=== PATIENT | male | born 1940 | race Caucasian/White ===

== ENCOUNTER → 2016-08-28 | Outpatient (CLI) | payer MEDICARE ==
[~2016-08-28] MED LIST: CHOL20003 PO; ENOX40SY4 SQ; ERGO500017 PO; FERR325T20 PO; HYDR-3138 PO; IBUP200T48 PO; NICO1PAT4 TD; POLY17PO5 PO; REGADENOSON 0.4 MG/5 ML SYRINGE ONE; TRAM50TA2 PO
== END | disposition home or self-care (01) ==
LOC: CFH 12:45
PROVIDERS: ATTEND Internal Medicine Cardiovascular Disease
DX: I25.89 Other forms of chronic ischemic heart disease (principal); R06.02 Shortness of breath
CPT/HCPCS: 78452; 93017; 93306; A9502; J2785

== ENCOUNTER 2016-10-08 08:03 | Day surgery (SDC) | payer MEDICARE ==
[2016-10-07 15:08] VITALS: BP 135/84
[2016-10-07 15:19] LABS: BLOOD UREA NITROGEN 20 mg/dL (7-18)
[~2016-10-08] VITALS: Ht 182.9 cm; Wt 63.6 kg
[~2016-10-08 08:03] MED LIST changes: +ASPI-496 PO; +CARV12.543 PO; -REGADENOSON 0.4 MG/5 ML SYRINGE ONE
[2016-10-08] MEDS ORDERED: SODIUM CHLORIDE 0.9% 1,000 ML IV SCH (08:17)
[2016-10-08] MEDS ORDERED: BISACODYL 5 MG EC TABLET PO PRN (08:30)
[2016-10-08] MEDS ORDERED: ONDANSETRON 2MG/ML, 2ML IVPush PRN (08:30)
[2016-10-08] MEDS ORDERED: ZOLPIDEM 5MG TABLET PO PRN (08:30)
[2016-10-08] MEDS ORDERED: BISACODYL 10 MG SUPP PR PRN (08:30)
[2016-10-08] MEDS ORDERED: ACETAMINOPHEN 325 MG TABLET PO PRN (08:30)
[2016-10-08] MEDS ORDERED: IBUP-1222 PO (08:42)
[2016-10-08] MEDS ORDERED: FENTANYL PF 100 MCG/2ML ONE (10:15)
[2016-10-08] MEDS ORDERED: NITROGLYCERIN 5 MG/ML, 10ML ONE (10:15)
[2016-10-08] MEDS ORDERED: VERAPAMIL 2.5 MG/ML, 2ML ONE (10:15)
[2016-10-08] MEDS ORDERED: MIDAZOLAM 1 MG/ML, 5ML ONE (10:15)
[2016-10-08] MEDS ORDERED: LIDOCAINE 2%, 20ML ONE (10:16)
[2016-10-08] MEDS ORDERED: HEPARIN 1,000 UNITS/ML, 10ML ONE (10:16)
[2016-10-08] MEDS ORDERED: SACU1TAB PO (12:50)
[2016-10-08] MEDS ORDERED: SODIUM CHLORIDE 0.9% 250 ML IV SCH (13:00)
== END 2016-10-08 14:15 | disposition home or self-care (01) ==
LOC: CACL 08:03
PROVIDERS: ATTEND Internal Medicine Cardiovascular Disease
DX: I25.10 Atherosclerotic heart disease of native coronary artery without angina pectoris (principal); I42.9 Cardiomyopathy, unspecified; F10.10 Alcohol abuse, uncomplicated; F17.210 Nicotine dependence, cigarettes, uncomplicated; Z91.011 Allergy to milk products; Z79.01 Long term (current) use of anticoagulants
CPT/HCPCS: 36415; 71020; 80048; 85025; 85610; 85730; 93005; 93454; 99152; C1894; J1644; J2250; J3010; J3490; Q9967

== ENCOUNTER 2016-11-01 18:07 | Emergency (ER) | payer MEDICARE ==
[~2016-11-01] VITALS: Ht 182.9 cm; Wt 64.0 kg
[~2016-11-01 18:07] MED LIST changes: +IBUP-1222 PO; +SACU1TAB PO
[2016-11-01] MEDS ORDERED: SODIUM CHLORIDE 0.9% 1,000 ML IV ONE (18:15)
[2016-11-01] MEDS ORDERED: ONDANSETRON 2MG/ML, 2ML IVPush ONE (18:30)
[2016-11-01] MEDS ORDERED: DIPH,PERTUSS(ACELL),TET VAC/PF 0.5 ML IM-VACC ONE ×2 (18:30→18:59)
[2016-11-01] MEDS ORDERED: ASPI-496 PO (18:37)
[2016-11-01] MEDS ORDERED: ONDANSETRON 2MG/ML, 2ML ONE (18:58)
[2016-11-01 19:03] LABS: BLOOD UREA NITROGEN 26 mg/dL (7-18)
[2016-11-01 19:11] LABS: ASPARTATE AMINO TRANSFERASE 15 U/L (15-37)
[2016-11-01 19:16] LABS: IS PT STATUS REG ER OR PRE ER? YES
[2016-11-01] MEDS ORDERED: LIDOCAINE 1%, 20ML SQ ONE (19:30)
[2016-11-01] MEDS ORDERED: BACITRACIN ZINC OINT 500U/GM, 0.9 GM ONE (20:07)
[2016-11-01 20:39] VITALS: BP 131/76
== END 2016-11-01 20:42 | disposition home or self-care (01) ==
LOC: ED 20:36
DX: R55 Syncope and collapse (principal); S01.01XA Laceration without foreign body of scalp, initial encounter; W01.0XXA Fall on same level from slipping, tripping and stumbling without subsequent striking against object, initial encounter; Y93.89 Activity, other specified; Y92.89 Other specified places as the place of occurrence of the external cause; Y99.9 Unspecified external cause status
CPT/HCPCS: 12002; 36415; 70450; 71010; 72125; 80053; 84484; 85025; 85610; 90471; 90715; 93005; 96361; 96374; 99285; J2405; J7030

== ENCOUNTER 2017-08-31 12:39 | Inpatient (IN) | payer MEDICARE ==
[~2017-08-31] VITALS: Ht 182.9 cm; Wt 59.8 kg
[~2017-08-31 12:39] MED LIST changes: +CHOL2000 PO; -CHOL20003 PO; +FERR325T18 PO; -FERR325T20 PO; -HYDR-3138 PO; +HYDR-3237 PO; -IBUP200T48 PO; +IBUP200T49 PO; +NICO-486 TD; -NICO1PAT4 TD
[2017-08-31 14:41] LABS: BASOPHILS # (AUTO) 0.01 x10^3/uL (0-0.1); BASOPHILS % (AUTO) 0 % (0-1); EOSINOPHILS # (AUTO) 0.01 x10^3/uL (0-0.4); EOSINOPHILS % (AUTO) 0 % (1-7); LYMPHOCYTES # (AUTO) 0.97 x10^3/uL (1-3.4); LYMPHOCYTES % (AUTO) 22 % (22-44); MD NO; MEAN CORPUSCULAR HEMOGLOBIN 29.3 pg (27.5-34.5); MEAN CORPUSCULAR HGB CONC 31.7 g/dL (33.2-36.2); MEAN CORPUSCULAR VOLUME 92.4 fL (81-97); MEAN PLATELET VOLUME 8.3 fL (7.4-10.4); MONOCYTES # (AUTO) 0.34 x10^3/uL (0.2-0.8); MONOCYTES % (AUTO) 8 % (2-9); NEUTROPHILS # (AUTO) 3.06 x10^3/uL (1.8-6.8); NEUTROPHILS % (AUTO) 70 % (42-75); PLATELET COUNT 251 x10^3/uL (130-400); RED BLOOD COUNT 2.89 x10^6/uL (4.38-5.82); RED CELL DISTRIBUTION WIDTH 16.1 % (9.4-14.8)
[2017-08-31 14:54] LABS: ALBUMIN 2.4 g/dL (3.4-5.0); CALCIUM 8.5 mg/dL (8.5-10.1)
[2017-08-31 14:59] LABS: ALANINE AMINOTRANSFERASE 22 U/L (12-78); ALKALINE PHOSPHATASE 131 U/L (45-117); ANION GAP 5 mmol/L (5-15); BILIRUBIN,TOTAL 0.2 mg/dL (0.2-1.0); CHLORIDE 106 mmol/L (98-107); TOTAL PROTEIN 8.8 g/dL (6.4-8.2)
[2017-08-31 15:01] LABS: INTERNATIONAL NORMALIZED RATIO 0.98 (0.93-1.1); PROTHROMBIN TIME 10.1 Seconds (9.6-11.5)
[2017-08-31 15:53] LABS: CULTURE INDICATED? YES; MICROSCOPIC INDICATED
[2017-08-31] MEDS ORDERED: iron PO (15:55)
[2017-08-31] MEDS ORDERED: ACETAMINOPHEN 325 MG TABLET PO PRN (16:00)
[2017-08-31] MEDS ORDERED: ONDANSETRON 2MG/ML, 2ML IVPush PRN (16:00)
[2017-08-31] MEDS ORDERED: VANCOMYCIN PER PHARMACY MC PRN (16:00)
[2017-08-31] MEDS ORDERED: hydrALAzine 20 MG/ML, 1ML IVPush PRN (16:00)
[2017-08-31] MEDS ORDERED: PHARMACOKINETIC MONITORING MC PRN (17:00)
[2017-08-31 17:29] VITALS: BP 115/75
[2017-08-31] MEDS ORDERED: VANCOMYCIN PMX 1GM/200ML 200 ML IV ONE (17:30)
[2017-08-31] MEDS: BEER 12 OZ CAN PO SCH (17:37)
[2017-08-31] MEDS: AMPICILLIN/SULBACTAM 1,500 MG in SODIUM CHLORIDE 0.9% 50 ML IV SCH (17:54)
[2017-08-31] MEDS: SODIUM CHLORIDE 0.9% 1,000 ML IV SCH (17:54)
[2017-08-31 19:57] VITALS: BP 99/64
[2017-08-31] MEDS ORDERED: HEPARIN 5,000 UNITS/ML, 1ML SQ SCH (21:00)
[2017-08-31] MEDS ORDERED: CARVEDILOL 6.25 MG TABLET ONE ×2 (23:18→23:21)
[2017-08-31] MEDS: CARVEDILOL 12.5 MG TABLET PO SCH (23:26)
[2017-08-31] MEDS: ASPIRIN 81 MG TABLET EC PO SCH (23:27)
[2017-09-01] VITALS (15 sets, daily range): BP systolic 92–102; BP diastolic 50–74
[2017-09-01] MEDS: AMPICILLIN/SULBACTAM 1,500 MG in SODIUM CHLORIDE 0.9% 50 ML IV SCH ×3 (02:22→18:26)
[2017-09-01 06:15] LABS: MEAN CORPUSCULAR HEMOGLOBIN 30.2 pg (27.5-34.5); MEAN CORPUSCULAR HGB CONC 32.7 g/dL (33.2-36.2); MEAN CORPUSCULAR VOLUME 92.4 fL (81-97); PLATELET COUNT 199 x10^3/uL (130-400); RED BLOOD COUNT 2.13 x10^6/uL (4.38-5.82); RED CELL DISTRIBUTION WIDTH 15.8 % (9.4-14.8)
[2017-09-01 06:23] LABS: % IRON SATURATION 17 % (20-55); ALANINE AMINOTRANSFERASE 16 U/L (12-78); ALBUMIN 1.8 g/dL (3.4-5.0); ANION GAP 5 mmol/L (5-15); CALCIUM 7.7 mg/dL (8.5-10.1); CHLORIDE 111 mmol/L (98-107); CREATININE 1.61 mg/dL (0.7-1.3); IRON LEVEL 30 mcg/dL (65-175); TOTAL IRON BINDING CAPACITY 172 mcg/dL (250-450)
[2017-09-01 06:29] LABS: ALKALINE PHOSPHATASE 91 U/L (45-117); BILIRUBIN,TOTAL 0.2 mg/dL (0.2-1.0); PREALBUMIN 11.8 mg/dL (20.0-40.0); TOTAL PROTEIN 6.8 g/dL (6.4-8.2)
[2017-09-01 06:30] LABS: BASOPHILS # (AUTO) 0.01 x10^3/uL (0-0.1); BASOPHILS % (AUTO) 0 % (0-1); EOSINOPHILS # (AUTO) 0.01 x10^3/uL (0-0.4); EOSINOPHILS % (AUTO) 0 % (1-7); LYMPHOCYTES # (AUTO) 0.98 x10^3/uL (1-3.4); LYMPHOCYTES % (AUTO) 33 % (22-44); MD SCAN; MONOCYTES # (AUTO) 0.42 x10^3/uL (0.2-0.8); MONOCYTES % (AUTO) 14 % (2-9); NEUTROPHILS # (AUTO) 1.59 x10^3/uL (1.8-6.8); NEUTROPHILS % (AUTO) 53 % (42-75)
[2017-09-01] MEDS: BEER 12 OZ CAN PO SCH ×2 (08:00→15:56)
[2017-09-01] MEDS: CARVEDILOL 12.5 MG TABLET PO SCH ×2 (09:00→21:19)
[2017-09-01] MEDS ORDERED: CARVEDILOL 6.25 MG TABLET ONE ×2 (09:12→21:16)
[2017-09-01] MEDS: FERROUS SULFATE 325 MG TABLET PO SCH (09:33)
[2017-09-01] MEDS: ASPIRIN 81 MG TABLET EC PO SCH ×2 (09:33→21:19)
[2017-09-01] MEDS: IRON SUCROSE COMPLEX 100MG/5ML IV SCH (09:49)
[2017-09-01] MEDS: SODIUM CHLORIDE 0.9% 1,000 ML IV SCH ×3 (09:52→23:34)
[2017-09-02 00:25] VITALS: BP 87/45
[2017-09-02] MEDS: AMPICILLIN/SULBACTAM 1,500 MG in SODIUM CHLORIDE 0.9% 50 ML IV SCH ×3 (02:34→23:56)
[2017-09-02 06:00] LABS: BASOPHILS # (AUTO) 0.01 x10^3/uL (0-0.1); BASOPHILS % (AUTO) 0 % (0-1); EOSINOPHILS # (AUTO) 0.01 x10^3/uL (0-0.4); EOSINOPHILS % (AUTO) 0 % (1-7); LYMPHOCYTES # (AUTO) 1.02 x10^3/uL (1-3.4); LYMPHOCYTES % (AUTO) 32 % (22-44); MD NO; MEAN CORPUSCULAR HEMOGLOBIN 30.6 pg (27.5-34.5); MEAN CORPUSCULAR HGB CONC 33.4 g/dL (33.2-36.2); MEAN CORPUSCULAR VOLUME 91.8 fL (81-97); MEAN PLATELET VOLUME 8.3 fL (7.4-10.4); MONOCYTES # (AUTO) 0.51 x10^3/uL (0.2-0.8); MONOCYTES % (AUTO) 16 % (2-9); NEUTROPHILS % (AUTO) 51 % (42-75); PLATELET COUNT 198 x10^3/uL (130-400); RED BLOOD COUNT 3.01 x10^6/uL (4.38-5.82); RED CELL DISTRIBUTION WIDTH 15.7 % (9.4-14.8)
[2017-09-02 06:10] LABS: CHLORIDE 112 mmol/L (98-107)
[2017-09-02 06:22] LABS: ALANINE AMINOTRANSFERASE 15 U/L (12-78); ALBUMIN 1.8 g/dL (3.4-5.0); ALKALINE PHOSPHATASE 96 U/L (45-117); ANION GAP 7 mmol/L (5-15); BILIRUBIN,TOTAL 0.6 mg/dL (0.2-1.0); CALCIUM 7.8 mg/dL (8.5-10.1); CREATININE 1.82 mg/dL (0.7-1.3); VANCOMYCIN,RANDOM 6.8 mcg/mL
[2017-09-02 07:25] VITALS: BP 107/61
[2017-09-02] MEDS ORDERED: VANCOMYCIN PMX 1GM/200ML 200 ML IV ONE (08:30)
[2017-09-02] MEDS ORDERED: CARVEDILOL 6.25 MG TABLET ONE (08:54)
[2017-09-02] MEDS: ASPIRIN 81 MG TABLET EC PO SCH ×2 (09:01→23:55)
[2017-09-02] MEDS: IRON SUCROSE COMPLEX 100MG/5ML IV SCH (09:01)
[2017-09-02] MEDS: FERROUS SULFATE 325 MG TABLET PO SCH (09:02)
[2017-09-02] MEDS: CARVEDILOL 12.5 MG TABLET PO SCH ×2 (09:02→23:55)
[2017-09-02] MEDS: BEER 12 OZ CAN PO SCH ×2 (09:09→18:36)
[2017-09-02] MEDS: SODIUM CHLORIDE 0.9% 1,000 ML IV SCH ×2 (11:30→23:56)
[2017-09-02 13:15] VITALS: BP 109/58
[2017-09-02 19:53] VITALS: BP 106/61
[2017-09-03 01:35] VITALS: BP 117/67
[2017-09-03 05:39] LABS: BASOPHILS # (AUTO) 0.01 x10^3/uL (0-0.1); BASOPHILS % (AUTO) 0 % (0-1); EOSINOPHILS # (AUTO) 0.01 x10^3/uL (0-0.4); EOSINOPHILS % (AUTO) 0 % (1-7); LYMPHOCYTES # (AUTO) 1.04 x10^3/uL (1-3.4); LYMPHOCYTES % (AUTO) 34 % (22-44); MD NO; MEAN CORPUSCULAR HGB CONC 32.8 g/dL (33.2-36.2); MEAN CORPUSCULAR VOLUME 91.6 fL (81-97); MEAN PLATELET VOLUME 7.9 fL (7.4-10.4); MONOCYTES % (AUTO) 16 % (2-9); NEUTROPHILS # (AUTO) 1.53 x10^3/uL (1.8-6.8); NEUTROPHILS % (AUTO) 50 % (42-75); PLATELET COUNT 178 x10^3/uL (130-400); RED BLOOD COUNT 2.84 x10^6/uL (4.38-5.82); RED CELL DISTRIBUTION WIDTH 16.8 % (9.4-14.8)
[2017-09-03 05:50] LABS: ALBUMIN 1.7 g/dL (3.4-5.0); ANION GAP 6 mmol/L (5-15); CHLORIDE 113 mmol/L (98-107); CREATININE 1.51 mg/dL (0.7-1.3)
[2017-09-03] MEDS ORDERED: DOXY100C15 PO (07:52)
[2017-09-03] MEDS: BEER 12 OZ CAN PO SCH (08:00)
[2017-09-03] MEDS: ASPIRIN 81 MG TABLET EC PO SCH (08:29)
[2017-09-03] MEDS: CARVEDILOL 12.5 MG TABLET PO SCH (08:29)
[2017-09-03] MEDS: IRON SUCROSE COMPLEX 100MG/5ML IV SCH (08:29)
[2017-09-03 08:30] VITALS: BP 134/66
[2017-09-03] MEDS ORDERED: MORPHINE SULFATE 4 MG/ML, 1ML IVPush PRN (08:30)
[2017-09-03] MEDS: AMPICILLIN/SULBACTAM 1,500 MG in SODIUM CHLORIDE 0.9% 50 ML IV SCH (10:02)
[2017-09-03] MEDS: SODIUM CHLORIDE 0.9% 1,000 ML IV SCH (10:03)
== END 2017-09-03 13:30 | disposition home or self-care (01) | DRG 725 ==
LOC: ED 15:19 → EDIP 15:20 → SUATTDRO 15:40 → ED 16:02 → 4NOR 16:40
PROVIDERS: ADMIT Hospitalist; ATTEND Hospitalist
PROC: 0T9B70Z Drainage of Bladder with Drainage Device, Via Natural or Artificial Opening (ICD-10-PCS; principal; 2017-08-31)
PROC: 30233N1 Transfusion of Nonautologous Red Blood Cells into Peripheral Vein, Percutaneous Approach (ICD-10-PCS; 2017-09-01)
DX: N40.1 Benign prostatic hyperplasia with lower urinary tract symptoms (principal); E43 Unspecified severe protein-calorie malnutrition; N17.9 Acute kidney failure, unspecified; I96 Gangrene, not elsewhere classified; E87.5 Hyperkalemia; B95.61 Methicillin susceptible Staphylococcus aureus infection as the cause of diseases classified elsewhere; D63.8 Anemia in other chronic diseases classified elsewhere; N13.8 Other obstructive and reflux uropathy; C44.90 Unspecified malignant neoplasm of skin, unspecified; Z68.1 Body mass index [BMI] 19.9 or less, adult; N39.0 Urinary tract infection, site not specified; R31.9 Hematuria, unspecified; D50.9 Iron deficiency anemia, unspecified; F10.10 Alcohol abuse, uncomplicated; F17.210 Nicotine dependence, cigarettes, uncomplicated; I12.9 Hypertensive chronic kidney disease with stage 1 through stage 4 chronic kidney disease, or unspecified chronic kidney disease; M06.9 Rheumatoid arthritis, unspecified; N18.3 Chronic kidney disease, stage 3 (moderate); S31.501A Unspecified open wound of unspecified external genital organs, male, initial encounter; N50.89 Other specified disorders of the male genital organs; Z82.49 Family history of ischemic heart disease and other diseases of the circulatory system; Z96.649 Presence of unspecified artificial hip joint
CPT/HCPCS: 36415; 74176; 80048; 80053; 80202; 81001; 82040; 83540; 83550; 83735; 84100; 84134; 85025; 85610; 85730; 86850; 86900; 86923; 87070; 87077; 87086; 87186; 87205; 93005; 99285; J1644; J1756; J3370; J0295; J7030; P9016

== ENCOUNTER 2017-09-10 18:29 | Inpatient (IN) | payer MEDICARE ==
[~2017-09-10] VITALS: Ht 182.9 cm; Wt 58.0 kg
[~2017-09-10 18:29] MED LIST changes: +DOXY100C15 PO; +iron PO
[2017-09-10 18:53] LABS: MEAN CORPUSCULAR HEMOGLOBIN 31.1 pg (27.5-34.5); MEAN CORPUSCULAR HGB CONC 32.8 g/dL (33.2-36.2); MEAN CORPUSCULAR VOLUME 94.8 fL (81-97); MEAN PLATELET VOLUME 8.6 fL (7.4-10.4); PLATELET COUNT 168 x10^3/uL (130-400); RED BLOOD COUNT 3.46 x10^6/uL (4.38-5.82); RED CELL DISTRIBUTION WIDTH 17.5 % (9.4-14.8)
[2017-09-10 19:04] LABS: ALANINE AMINOTRANSFERASE 22 U/L (12-78); ALBUMIN 2.6 g/dL (3.4-5.0); ANION GAP 8 mmol/L (5-15); CALCIUM 8.7 mg/dL (8.5-10.1); CHLORIDE 109 mmol/L (98-107)
[2017-09-10 19:05] LABS: SALICYLATE LEVEL < 1.7 mg/dL (2.8-20.0)
[2017-09-10 19:07] LABS: ALKALINE PHOSPHATASE 97 U/L (45-117); BILIRUBIN,TOTAL 0.5 mg/dL (0.2-1.0); TOTAL PROTEIN 8.5 g/dL (6.4-8.2)
[2017-09-10 19:08] LABS: ACETAMINOPHEN < 2 mcg/mL (10-30)
[2017-09-10 19:13] LABS: MD YES
[2017-09-10 19:16] LABS: BASOS#(MANUAL) 0.02 x10^3/uL (0-0.1); BASOS% (MANUAL) 1 % (0-1); LYMPH#(MANUAL) 1.08 x10^3/uL (1-3.4); LYMPHS% (MANUAL) 47 % (22-44); MONOS#(MANUAL) 0.14 x10^3/uL (0.3-2.7); MONOS% (MANUAL) 6 % (2-9); SEG#(MANUAL) 1.06 x10^3/uL (1.8-6.8); SEGS% (MANUAL) 46 % (42-75)
[2017-09-10 19:17] LABS: ANISOCYTOSIS 1+
[2017-09-10 19:18] LABS: <PLATELET ESTIMATE> ADEQUATE; <PLT MORPHOLOGY> NORMAL PLT MORPH
[2017-09-10 19:37] LABS: AMPHETAMINE SCREEN, URINE Negative (Negative); BARBITURATE SCREEN, URINE Negative (Negative); BENZODIAZEPINE SCREEN, URINE Negative (Negative); CANNABINOID SCREEN, URINE Negative (Negative); COCAINE SCREEN, URINE Negative (Negative); METHADONE SCREEN, URINE Negative (Negative); OPIATE SCREEN, URINE Negative (Negative)
[2017-09-10] MEDS ORDERED: ACETAMINOPHEN 325 MG TABLET PO PRN (20:30)
[2017-09-10] MEDS ORDERED: BISACODYL 10 MG SUPP PR PRN (20:30)
[2017-09-10] MEDS ORDERED: POLYETHYLENE GLYCOL 17 GM PACKET PO PRN (20:30)
[2017-09-10] MEDS ORDERED: ONDANSETRON ODT 4 MG PO PRN (20:30)
[2017-09-10] MEDS: SODIUM CHLORIDE FLUSH 10ML SYR IVF SCH (21:00)
[2017-09-10] MEDS ORDERED: ASPIRIN 81 MG TABLET EC ONE (21:31)
[2017-09-10] MEDS ORDERED: NICOTINE 14MG/24 HR PATCH.TD24 ONE (21:31)
[2017-09-10] MEDS ORDERED: DOXYCYCLINE 100MG TABLET ONE (21:31)
[2017-09-10] MEDS: NICOTINE 14MG/24 HR PATCH.TD24 TD SCH (23:04)
[2017-09-10] MEDS: SACUBITRIL/VALSARTAN 24MG-26MG TAB PO SCH (23:05)
[2017-09-10] MEDS: DOXYCYCLINE 100MG TABLET PO SCH (23:06)
[2017-09-10] MEDS: ASPIRIN 81 MG TABLET EC PO SCH (23:06)
[2017-09-10] MEDS: CARVEDILOL 12.5 MG TABLET PO SCH (23:07)
[2017-09-11 00:48] VITALS: BP 131/85
[2017-09-11 02:11] VITALS: BP 131/85
[2017-09-11 06:30] LABS: MEAN CORPUSCULAR HEMOGLOBIN 31.5 pg (27.5-34.5); MEAN CORPUSCULAR HGB CONC 32.9 g/dL (33.2-36.2); MEAN CORPUSCULAR VOLUME 95.6 fL (81-97); PLATELET COUNT 146 x10^3/uL (130-400); RED BLOOD COUNT 2.89 x10^6/uL (4.38-5.82); RED CELL DISTRIBUTION WIDTH 17.9 % (9.4-14.8)
[2017-09-11 06:38] LABS: ALBUMIN 2.3 g/dL (3.4-5.0); CALCIUM 7.9 mg/dL (8.5-10.1); CHLORIDE 109 mmol/L (98-107)
[2017-09-11 06:44] LABS: ALANINE AMINOTRANSFERASE 21 U/L (12-78); ALKALINE PHOSPHATASE 95 U/L (45-117); ANION GAP 7 mmol/L (5-15); BILIRUBIN,TOTAL 0.5 mg/dL (0.2-1.0); CREATININE 1.57 mg/dL (0.7-1.3); TOTAL PROTEIN 7.6 g/dL (6.4-8.2)
[2017-09-11 06:55] LABS: BASOPHILS # (AUTO) 0.01 x10^3/uL (0-0.1); BASOPHILS % (AUTO) 0 % (0-1); EOSINOPHILS # (AUTO) 0.01 x10^3/uL (0-0.4); EOSINOPHILS % (AUTO) 1 % (1-7); LYMPHOCYTES # (AUTO) 0.83 x10^3/uL (1-3.4); LYMPHOCYTES % (AUTO) 38 % (22-44); MD SCAN; MONOCYTES # (AUTO) 0.35 x10^3/uL (0.2-0.8); MONOCYTES % (AUTO) 16 % (2-9); NEUTROPHILS # (AUTO) 0.98 x10^3/uL (1.8-6.8); NEUTROPHILS % (AUTO) 45 % (42-75)
[2017-09-11 08:30] VITALS: BP 125/80
[2017-09-11] MEDS: SENNA/DOCUSATE TABLET PO SCH ×3 (09:00→19:54)
[2017-09-11] MEDS: SACUBITRIL/VALSARTAN 24MG-26MG TAB PO SCH ×2 (09:00→21:01)
[2017-09-11] MEDS: SODIUM CHLORIDE FLUSH 10ML SYR IVF SCH ×3 (09:00→21:00)
[2017-09-11] MEDS: DOXYCYCLINE 100MG TABLET PO SCH ×2 (09:04→21:01)
[2017-09-11] MEDS: ASPIRIN 81 MG TABLET EC PO SCH ×2 (09:04→21:01)
[2017-09-11] MEDS: CARVEDILOL 12.5 MG TABLET PO SCH ×2 (09:45→21:01)
[2017-09-11] MEDS ORDERED: ACETAMINOPHEN 325 MG TABLET PO PRN (11:00)
[2017-09-11] MEDS: FERROUS SULFATE 325 MG TABLET PO SCH (11:09)
[2017-09-11] MEDS: FOLIC ACID 1 MG TABLET PO SCH (11:09)
[2017-09-11] MEDS: THIAMINE 100MG TABLET PO SCH (11:09)
[2017-09-11] MEDS: MULTIVITAMIN 1 TABLET PO SCH (11:09)
[2017-09-11 11:11] LABS: MICROSCOPIC INDICATED
[2017-09-11 11:12] LABS: CULTURE INDICATED? YES
[2017-09-11 14:30] VITALS: BP 115/72
[2017-09-11 19:59] VITALS: BP 102/62
[2017-09-11 20:58] VITALS: BP 110/66
[2017-09-11] MEDS: NICOTINE 14MG/24 HR PATCH.TD24 TD SCH (23:06)
[2017-09-12 02:22] VITALS: BP 112/69
[2017-09-12 05:50] LABS: MEAN CORPUSCULAR HEMOGLOBIN 31.8 pg (27.5-34.5); MEAN CORPUSCULAR HGB CONC 33.1 g/dL (33.2-36.2); MEAN PLATELET VOLUME 8.7 fL (7.4-10.4); PLATELET COUNT 144 x10^3/uL (130-400); RED BLOOD COUNT 2.92 x10^6/uL (4.38-5.82); RED CELL DISTRIBUTION WIDTH 18.5 % (9.4-14.8)
[2017-09-12 05:56] LABS: ANION GAP 8 mmol/L (5-15); CALCIUM 7.7 mg/dL (8.5-10.1); CHLORIDE 107 mmol/L (98-107)
[2017-09-12 05:59] LABS: CREATININE 1.62 mg/dL (0.7-1.3)
[2017-09-12 06:53] LABS: BASOPHILS # (AUTO) 0.01 x10^3/uL (0-0.1); BASOPHILS % (AUTO) 0 % (0-1); EOSINOPHILS # (AUTO) 0.01 x10^3/uL (0-0.4); EOSINOPHILS % (AUTO) 1 % (1-7); LYMPHOCYTES # (AUTO) 0.99 x10^3/uL (1-3.4); LYMPHOCYTES % (AUTO) 46 % (22-44); MD SCAN; MONOCYTES # (AUTO) 0.39 x10^3/uL (0.2-0.8); MONOCYTES % (AUTO) 18 % (2-9); NEUTROPHILS # (AUTO) 0.78 x10^3/uL (1.8-6.8); NEUTROPHILS % (AUTO) 36 % (42-75)
[2017-09-12 07:04] VITALS: BP 154/87
[2017-09-12] MEDS: SODIUM CHLORIDE FLUSH 10ML SYR IVF SCH ×2 (09:00→19:07)
[2017-09-12] MEDS ORDERED: CARVEDILOL 12.5 MG TABLET PO SCH (09:00)
[2017-09-12] MEDS: MULTIVITAMIN 1 TABLET PO SCH (09:05)
[2017-09-12] MEDS: THIAMINE 100MG TABLET PO SCH (09:05)
[2017-09-12] MEDS: FOLIC ACID 1 MG TABLET PO SCH (09:05)
[2017-09-12 12:23] VITALS: BP 99/57
[2017-09-12] MEDS: FERROUS SULFATE 325 MG TABLET PO SCH (12:36)
[2017-09-12 19:05] VITALS: BP 115/75
[2017-09-12] MEDS: CARVEDILOL 6.25 MG TABLET PO SCH (20:40)
[2017-09-13 02:34] VITALS: BP 108/69
[2017-09-13] MEDS: NICOTINE 14MG/24 HR PATCH.TD24 TD SCH (02:40)
[2017-09-13 06:36] VITALS: BP 141/83
[2017-09-13 07:03] LABS: MEAN CORPUSCULAR HEMOGLOBIN 30.4 pg (27.5-34.5); MEAN CORPUSCULAR HGB CONC 32.3 g/dL (33.2-36.2); MEAN CORPUSCULAR VOLUME 94.4 fL (81-97); PLATELET COUNT 144 x10^3/uL (130-400); RED BLOOD COUNT 2.84 x10^6/uL (4.38-5.82); RED CELL DISTRIBUTION WIDTH 18.2 % (9.4-14.8)
[2017-09-13 07:13] LABS: ALBUMIN 2.3 g/dL (3.4-5.0); ANION GAP 5 mmol/L (5-15); CALCIUM 7.9 mg/dL (8.5-10.1); CHLORIDE 112 mmol/L (98-107); CREATININE 1.55 mg/dL (0.7-1.3)
[2017-09-13 07:31] LABS: BASOPHILS # (AUTO) 0.01 x10^3/uL (0-0.1); BASOPHILS % (AUTO) 0 % (0-1); EOSINOPHILS # (AUTO) 0.02 x10^3/uL (0-0.4); EOSINOPHILS % (AUTO) 1 % (1-7); LYMPHOCYTES # (AUTO) 1.03 x10^3/uL (1-3.4); LYMPHOCYTES % (AUTO) 47 % (22-44); MD SCAN; MONOCYTES # (AUTO) 0.41 x10^3/uL (0.2-0.8); MONOCYTES % (AUTO) 19 % (2-9); NEUTROPHILS # (AUTO) 0.73 x10^3/uL (1.8-6.8); NEUTROPHILS % (AUTO) 33 % (42-75)
[2017-09-13 07:33] LABS: ABSOLUTE RETICS # 0.05 x10^6/uL (0.5-1.5); RED BLOOD COUNT 2.78 x10^6/uL (4.38-5.82); RETICULOCYTE COUNT % 1.79 % (0.5-1.5)
[2017-09-13] MEDS: SODIUM CHLORIDE FLUSH 10ML SYR IVF SCH ×2 (07:42→19:13)
[2017-09-13] MEDS: CARVEDILOL 6.25 MG TABLET PO SCH ×2 (07:46→19:43)
[2017-09-13] MEDS: FOLIC ACID 1 MG TABLET PO SCH (07:46)
[2017-09-13] MEDS: MULTIVITAMIN 1 TABLET PO SCH (07:46)
[2017-09-13] MEDS: THIAMINE 100MG TABLET PO SCH (07:47)
[2017-09-13] MEDS: SENNA/DOCUSATE TABLET PO SCH (07:47)
[2017-09-13 12:06] VITALS: BP 126/73
[2017-09-13] MEDS: FERROUS SULFATE 325 MG TABLET PO SCH (12:16)
[2017-09-13 19:20] VITALS: BP 114/69
[2017-09-13] MEDS: SULFAMETH./TRIMETHOPRIM SS 400MG/80MG TABLET PO SCH (19:42)
[2017-09-14 04:32] VITALS: BP 117/70
[2017-09-14 06:08] LABS: MEAN CORPUSCULAR HEMOGLOBIN 30.5 pg (27.5-34.5); MEAN CORPUSCULAR HGB CONC 32.3 g/dL (33.2-36.2); MEAN CORPUSCULAR VOLUME 94.5 fL (81-97); MEAN PLATELET VOLUME 8.1 fL (7.4-10.4); PLATELET COUNT 151 x10^3/uL (130-400); RED BLOOD COUNT 2.87 x10^6/uL (4.38-5.82); RED CELL DISTRIBUTION WIDTH 18.7 % (9.4-14.8)
[2017-09-14 06:35] VITALS: BP 124/72
[2017-09-14 06:36] LABS: MD YES
[2017-09-14 06:39] LABS: EOS#(MANUAL) 0.02 x10^3/uL (0.0-0.4); EOS% (MANUAL) 1 % (1-7); LYMPH#(MANUAL) 1.13 x10^3/uL (1-3.4); LYMPHS% (MANUAL) 54 % (22-44); MONOS#(MANUAL) 0.25 x10^3/uL (0.3-2.7); MONOS% (MANUAL) 12 % (2-9); SEG#(MANUAL) 0.69 x10^3/uL (1.8-6.8); SEGS% (MANUAL) 33 % (42-75)
[2017-09-14 06:40] LABS: <PLATELET ESTIMATE> ADEQUATE; <PLT MORPHOLOGY> NORMAL PLT MORPH; ANISOCYTOSIS 1+
[2017-09-14 06:56] LABS: ANION GAP 7 mmol/L (5-15); CALCIUM 7.9 mg/dL (8.5-10.1); CHLORIDE 112 mmol/L (98-107); CREATININE 1.69 mg/dL (0.7-1.3)
[2017-09-14] MEDS: SODIUM CHLORIDE FLUSH 10ML SYR IVF SCH ×2 (07:44→18:59)
[2017-09-14] MEDS: CARVEDILOL 6.25 MG TABLET PO SCH ×2 (07:45→19:58)
[2017-09-14] MEDS: SENNA/DOCUSATE TABLET PO SCH (07:46)
[2017-09-14] MEDS: MULTIVITAMIN 1 TABLET PO SCH (07:46)
[2017-09-14] MEDS: FOLIC ACID 1 MG TABLET PO SCH (07:46)
[2017-09-14] MEDS: SULFAMETH./TRIMETHOPRIM SS 400MG/80MG TABLET PO SCH ×2 (07:47→19:57)
[2017-09-14] MEDS: THIAMINE 100MG TABLET PO SCH (07:47)
[2017-09-14] MEDS: NICOTINE 14MG/24 HR PATCH.TD24 TD SCH (07:49)
[2017-09-14] MEDS: FERROUS SULFATE 325 MG TABLET PO SCH (12:57)
[2017-09-14 13:41] VITALS: BP 121/68
[2017-09-14 18:58] VITALS: BP 122/73
[2017-09-15 01:37] VITALS: BP 131/79
[2017-09-15 05:01] LABS: MEAN CORPUSCULAR HGB CONC 32.6 g/dL (33.2-36.2); MEAN CORPUSCULAR VOLUME 94.8 fL (81-97); MEAN PLATELET VOLUME 8.4 fL (7.4-10.4); PLATELET COUNT 150 x10^3/uL (130-400); RED BLOOD COUNT 2.78 x10^6/uL (4.38-5.82); RED CELL DISTRIBUTION WIDTH 18.2 % (9.4-14.8)
[2017-09-15 05:14] LABS: ALBUMIN 2.3 g/dL (3.4-5.0); ANION GAP 8 mmol/L (5-15); CALCIUM 7.9 mg/dL (8.5-10.1); CHLORIDE 110 mmol/L (98-107)
[2017-09-15 05:29] LABS: BASOPHILS # (AUTO) 0.02 x10^3/uL (0-0.1); BASOPHILS % (AUTO) 1 % (0-1); EOSINOPHILS # (AUTO) 0.02 x10^3/uL (0-0.4); EOSINOPHILS % (AUTO) 1 % (1-7); LYMPHOCYTES # (AUTO) 1.21 x10^3/uL (1-3.4); LYMPHOCYTES % (AUTO) 50 % (22-44); MD SCAN; MONOCYTES # (AUTO) 0.46 x10^3/uL (0.2-0.8); MONOCYTES % (AUTO) 19 % (2-9); NEUTROPHILS # (AUTO) 0.74 x10^3/uL (1.8-6.8); NEUTROPHILS % (AUTO) 30 % (42-75)
[2017-09-15 05:43] LABS: % IRON SATURATION 23 % (20-55); CREATININE 1.75 mg/dL (0.7-1.3); FOLATE LEVEL 14.2 ng/mL (3.1-17.5); IRON LEVEL 53 mcg/dL (65-175); TOTAL IRON BINDING CAPACITY 229 mcg/dL (250-450); TRANSFERRIN 184 mg/dL (200-360)
[2017-09-15 06:30] VITALS: BP 130/75
[2017-09-15] MEDS ORDERED: SODIUM CHLORIDE 0.9% 1,000ML IVBOLUS ONE (06:30)
[2017-09-15] MEDS: FOLIC ACID 1 MG TABLET PO SCH (09:52)
[2017-09-15] MEDS: SENNA/DOCUSATE TABLET PO SCH (09:53)
[2017-09-15] MEDS: NICOTINE 14MG/24 HR PATCH.TD24 TD SCH (09:53)
[2017-09-15] MEDS: CARVEDILOL 6.25 MG TABLET PO SCH ×2 (09:53→20:38)
[2017-09-15] MEDS: THIAMINE 100MG TABLET PO SCH (09:53)
[2017-09-15] MEDS: AMOXICILLIN/CLAV 875-125MG TABLET PO SCH ×2 (09:53→20:38)
[2017-09-15] MEDS: SACUBITRIL/VALSARTAN 24MG-26MG TAB PO SCH (09:53)
[2017-09-15] MEDS: MULTIVITAMIN 1 TABLET PO SCH (09:55)
[2017-09-15] MEDS: FERROUS SULFATE 325 MG TABLET PO SCH ×2 (11:11→17:23)
[2017-09-15 12:01] VITALS: BP 99/61
[2017-09-15] MEDS: SODIUM CHLORIDE FLUSH 10ML SYR IVF SCH ×2 (17:23→20:38)
[2017-09-15] MEDS: LACTATED RINGERS 1,000 ML IV SCH (17:24)
[2017-09-15 19:40] VITALS: BP 126/77
[2017-09-16 01:57] VITALS: BP 127/73
[2017-09-16] MEDS: LACTATED RINGERS 1,000 ML IV SCH ×2 (04:38→18:27)
[2017-09-16 06:15] LABS: MEAN CORPUSCULAR HEMOGLOBIN 31.1 pg (27.5-34.5); MEAN CORPUSCULAR VOLUME 94.5 fL (81-97); MEAN PLATELET VOLUME 8.9 fL (7.4-10.4); PLATELET COUNT 159 x10^3/uL (130-400); RED BLOOD COUNT 2.79 x10^6/uL (4.38-5.82); RED CELL DISTRIBUTION WIDTH 18.6 % (9.4-14.8)
[2017-09-16 06:30] VITALS: BP 138/81
[2017-09-16 06:31] LABS: ALBUMIN 2.3 g/dL (3.4-5.0); ANION GAP 8 mmol/L (5-15); CALCIUM 8.5 mg/dL (8.5-10.1); CHLORIDE 112 mmol/L (98-107); CREATININE 1.71 mg/dL (0.7-1.3)
[2017-09-16 06:34] LABS: FREE T4 (FREE THYROXINE) 0.94 ng/dL (0.76-1.46)
[2017-09-16 06:43] LABS: BASOPHILS # (AUTO) 0.01 x10^3/uL (0-0.1); BASOPHILS % (AUTO) 0 % (0-1); EOSINOPHILS # (AUTO) 0.01 x10^3/uL (0-0.4); EOSINOPHILS % (AUTO) 1 % (1-7); LYMPHOCYTES # (AUTO) 1.13 x10^3/uL (1-3.4); LYMPHOCYTES % (AUTO) 53 % (22-44); MD SCAN; MONOCYTES # (AUTO) 0.35 x10^3/uL (0.2-0.8); MONOCYTES % (AUTO) 17 % (2-9); NEUTROPHILS # (AUTO) 0.62 x10^3/uL (1.8-6.8); NEUTROPHILS % (AUTO) 29 % (42-75)
[2017-09-16] MEDS: FERROUS SULFATE 325 MG TABLET PO SCH ×3 (08:24→17:08)
[2017-09-16] MEDS: SODIUM CHLORIDE FLUSH 10ML SYR IVF SCH ×2 (08:24→20:13)
[2017-09-16] MEDS: NICOTINE 14MG/24 HR PATCH.TD24 TD SCH (08:25)
[2017-09-16] MEDS: FOLIC ACID 1 MG TABLET PO SCH (08:25)
[2017-09-16] MEDS: AMOXICILLIN/CLAV 875-125MG TABLET PO SCH ×2 (08:26→20:14)
[2017-09-16] MEDS: SACUBITRIL/VALSARTAN 24MG-26MG TAB PO SCH (08:26)
[2017-09-16] MEDS: SENNA/DOCUSATE TABLET PO SCH (08:26)
[2017-09-16] MEDS: CARVEDILOL 6.25 MG TABLET PO SCH ×2 (08:27→20:15)
[2017-09-16] MEDS: MULTIVITAMIN 1 TABLET PO SCH (08:27)
[2017-09-16] MEDS: THIAMINE 100MG TABLET PO SCH (08:27)
[2017-09-16 12:40] VITALS: BP 123/75
[2017-09-16 19:34] VITALS: BP 115/70
[2017-09-16 20:17] VITALS: BP 127/73
[2017-09-17 02:45] VITALS: BP 116/63
[2017-09-17 04:59] LABS: MEAN CORPUSCULAR HEMOGLOBIN 31.4 pg (27.5-34.5); MEAN CORPUSCULAR HGB CONC 33.1 g/dL (33.2-36.2); MEAN PLATELET VOLUME 8.6 fL (7.4-10.4); PLATELET COUNT 168 x10^3/uL (130-400); RED BLOOD COUNT 2.84 x10^6/uL (4.38-5.82); RED CELL DISTRIBUTION WIDTH 18.6 % (9.4-14.8)
[2017-09-17 05:06] LABS: CHLORIDE 111 mmol/L (98-107)
[2017-09-17 05:12] LABS: ALBUMIN 2.4 g/dL (3.4-5.0); ANION GAP 8 mmol/L (5-15); C-REACTIVE PROTEIN, QUANT 0.58 mg/dL (0.02-0.49); CALCIUM 8.4 mg/dL (8.5-10.1); CREATININE 1.43 mg/dL (0.7-1.3)
[2017-09-17 06:11] LABS: MD YES
[2017-09-17 06:14] LABS: ANISOCYTOSIS 1+; EOS#(MANUAL) 0.02 x10^3/uL (0.0-0.4); EOS% (MANUAL) 1 % (1-7); LYMPH#(MANUAL) 1.27 x10^3/uL (1-3.4); LYMPHS% (MANUAL) 67 % (22-44); MONOS% (MANUAL) 16 % (2-9); SEGS% (MANUAL) 16 % (42-75)
[2017-09-17 06:15] LABS: <PLATELET ESTIMATE> ADEQUATE; <PLT MORPHOLOGY> NORMAL PLT MORPH
[2017-09-17 06:47] LABS: SEDIMENTATION RATE > 120 mm/hr (0-10)
[2017-09-17 06:50] VITALS: BP 135/75
[2017-09-17] MEDS: CARVEDILOL 6.25 MG TABLET PO SCH ×2 (07:46→22:25)
[2017-09-17] MEDS ORDERED: LIDOCAINE-MPF 1%, 5ML ONE ×2 (08:33)
[2017-09-17] MEDS ORDERED: FENTANYL PF 100 MCG/2ML ONE ×2 (08:39)
[2017-09-17] MEDS ORDERED: FLUMAZENIL 0.1 MG/1 ML, 5ML ONE (08:39)
[2017-09-17] MEDS ORDERED: NALOXONE 1 MG/ML, 2ML ONE (08:39)
[2017-09-17] MEDS ORDERED: MIDAZOLAM 1 MG/ML, 5ML ONE (08:39)
[2017-09-17] MEDS: LACTATED RINGERS 1,000 ML IV SCH ×2 (10:16→22:26)
[2017-09-17] MEDS: AMOXICILLIN/CLAV 875-125MG TABLET PO SCH ×2 (10:17→22:26)
[2017-09-17] MEDS: THIAMINE 100MG TABLET PO SCH (10:17)
[2017-09-17] MEDS: FOLIC ACID 1 MG TABLET PO SCH (10:17)
[2017-09-17] MEDS: MULTIVITAMIN 1 TABLET PO SCH (10:17)
[2017-09-17] MEDS: FERROUS SULFATE 325 MG TABLET PO SCH ×3 (10:17→18:03)
[2017-09-17] MEDS: NICOTINE 14MG/24 HR PATCH.TD24 TD SCH (10:17)
[2017-09-17] MEDS: SENNA/DOCUSATE TABLET PO SCH (10:17)
[2017-09-17] MEDS: SACUBITRIL/VALSARTAN 24MG-26MG TAB PO SCH (10:17)
[2017-09-17] MEDS: SODIUM CHLORIDE FLUSH 10ML SYR IVF SCH ×2 (10:18→22:26)
[2017-09-17 13:45] VITALS: BP 124/72
[2017-09-17 18:43] VITALS: BP 116/69
[2017-09-18 00:20] VITALS: BP 132/79
[2017-09-18 06:29] LABS: MEAN CORPUSCULAR HEMOGLOBIN 31.2 pg (27.5-34.5); MEAN CORPUSCULAR HGB CONC 32.8 g/dL (33.2-36.2); MEAN CORPUSCULAR VOLUME 95.1 fL (81-97); MEAN PLATELET VOLUME 7.9 fL (7.4-10.4); PLATELET COUNT 171 x10^3/uL (130-400); RED BLOOD COUNT 2.84 x10^6/uL (4.38-5.82); RED CELL DISTRIBUTION WIDTH 18.7 % (9.4-14.8)
[2017-09-18 06:38] LABS: ANION GAP 7 mmol/L (5-15); CALCIUM 8.9 mg/dL (8.5-10.1); CHLORIDE 110 mmol/L (98-107); CREATININE 1.38 mg/dL (0.7-1.3)
[2017-09-18 06:45] VITALS: BP 158/99
[2017-09-18 07:37] LABS: MD YES; SEG#(MANUAL) 0.55 x10^3/uL (1.8-6.8); SEGS% (MANUAL) 25 % (42-75)
[2017-09-18 07:38] LABS: <PLATELET ESTIMATE> ADEQUATE; <PLT MORPHOLOGY> NORMAL PLT MORPH; ANISOCYTOSIS 1+; BASOS#(MANUAL) 0.02 x10^3/uL (0-0.1); BASOS% (MANUAL) 1 % (0-1); EOS#(MANUAL) 0.02 x10^3/uL (0.0-0.4); EOS% (MANUAL) 1 % (1-7); LYMPH#(MANUAL) 1.32 x10^3/uL (1-3.4); LYMPHS% (MANUAL) 60 % (22-44); MONOS#(MANUAL) 0.29 x10^3/uL (0.3-2.7); MONOS% (MANUAL) 13 % (2-9)
[2017-09-18] MEDS: AMOXICILLIN/CLAV 875-125MG TABLET PO SCH ×2 (09:00→20:44)
[2017-09-18] MEDS: SENNA/DOCUSATE TABLET PO SCH (09:00)
[2017-09-18] MEDS: MULTIVITAMIN 1 TABLET PO SCH (09:02)
[2017-09-18] MEDS: SACUBITRIL/VALSARTAN 24MG-26MG TAB PO SCH (09:02)
[2017-09-18] MEDS: FOLIC ACID 1 MG TABLET PO SCH (09:02)
[2017-09-18] MEDS: THIAMINE 100MG TABLET PO SCH (09:02)
[2017-09-18] MEDS: FERROUS SULFATE 325 MG TABLET PO SCH ×3 (09:02→17:45)
[2017-09-18] MEDS: NICOTINE 14MG/24 HR PATCH.TD24 TD SCH (09:03)
[2017-09-18] MEDS: SODIUM CHLORIDE FLUSH 10ML SYR IVF SCH ×2 (09:03→20:44)
[2017-09-18] MEDS: CARVEDILOL 6.25 MG TABLET PO SCH ×2 (09:12→20:45)
[2017-09-18] MEDS: LACTATED RINGERS 1,000 ML IV SCH (12:10)
[2017-09-18 14:15] VITALS: BP 107/70
[2017-09-18 19:03] VITALS: BP 110/66
[2017-09-19 01:07] VITALS: BP 114/68
[2017-09-19] MEDS: LACTATED RINGERS 1,000 ML IV SCH ×2 (01:35→14:58)
[2017-09-19 07:05] LABS: MEAN CORPUSCULAR HEMOGLOBIN 30.7 pg (27.5-34.5); MEAN CORPUSCULAR HGB CONC 32.5 g/dL (33.2-36.2); MEAN CORPUSCULAR VOLUME 94.7 fL (81-97); MEAN PLATELET VOLUME 8.2 fL (7.4-10.4); PLATELET COUNT 170 x10^3/uL (130-400); RED BLOOD COUNT 2.92 x10^6/uL (4.38-5.82)
[2017-09-19 08:05] LABS: BASOPHILS # (AUTO) 0.01 x10^3/uL (0-0.1); BASOPHILS % (AUTO) 1 % (0-1); EOSINOPHILS # (AUTO) 0.01 x10^3/uL (0-0.4); EOSINOPHILS % (AUTO) 1 % (1-7); LYMPHOCYTES # (AUTO) 1.19 x10^3/uL (1-3.4); LYMPHOCYTES % (AUTO) 61 % (22-44); MD SCAN; MONOCYTES % (AUTO) 16 % (2-9); NEUTROPHILS # (AUTO) 0.44 x10^3/uL (1.8-6.8); NEUTROPHILS % (AUTO) 23 % (42-75)
[2017-09-19 08:34] VITALS: BP 125/70
[2017-09-19] MEDS: AMOXICILLIN/CLAV 875-125MG TABLET PO SCH ×2 (09:00→21:10)
[2017-09-19] MEDS: SODIUM CHLORIDE FLUSH 10ML SYR IVF SCH ×2 (09:00→21:10)
[2017-09-19] MEDS: FOLIC ACID 1 MG TABLET PO SCH (09:00)
[2017-09-19] MEDS: SENNA/DOCUSATE TABLET PO SCH (09:00)
[2017-09-19] MEDS: MULTIVITAMIN 1 TABLET PO SCH (09:00)
[2017-09-19] MEDS: CARVEDILOL 6.25 MG TABLET PO SCH ×2 (09:00→21:10)
[2017-09-19] MEDS: SACUBITRIL/VALSARTAN 24MG-26MG TAB PO SCH (09:00)
[2017-09-19] MEDS: THIAMINE 100MG TABLET PO SCH (09:00)
[2017-09-19] MEDS: FERROUS SULFATE 325 MG TABLET PO SCH ×3 (09:00→17:43)
[2017-09-19] MEDS: NICOTINE 14MG/24 HR PATCH.TD24 TD SCH (09:01)
[2017-09-19 14:47] VITALS: BP 125/71
[2017-09-19 19:01] VITALS: BP 115/71
[2017-09-20 01:25] VITALS: BP 126/76
[2017-09-20] MEDS: LACTATED RINGERS 1,000 ML IV SCH ×2 (03:53→17:10)
[2017-09-20 04:37] LABS: MEAN CORPUSCULAR HEMOGLOBIN 31.4 pg (27.5-34.5); MEAN CORPUSCULAR HGB CONC 32.9 g/dL (33.2-36.2); MEAN CORPUSCULAR VOLUME 95.5 fL (81-97); MEAN PLATELET VOLUME 8.2 fL (7.4-10.4); PLATELET COUNT 168 x10^3/uL (130-400); RED BLOOD COUNT 2.89 x10^6/uL (4.38-5.82); RED CELL DISTRIBUTION WIDTH 19.4 % (9.4-14.8)
[2017-09-20 04:48] LABS: ANION GAP 6 mmol/L (5-15); CALCIUM 8.4 mg/dL (8.5-10.1); CHLORIDE 109 mmol/L (98-107)
[2017-09-20 04:49] LABS: CREATININE 1.44 mg/dL (0.7-1.3)
[2017-09-20 05:40] LABS: MD YES
[2017-09-20 05:43] LABS: ANISOCYTOSIS 1+; LYMPH#(MANUAL) 1.53 x10^3/uL (1-3.4); LYMPHS% (MANUAL) 73 % (22-44); MONOS#(MANUAL) 0.15 x10^3/uL (0.3-2.7); MONOS% (MANUAL) 7 % (2-9); SEG#(MANUAL) 0.42 x10^3/uL (1.8-6.8); SEGS% (MANUAL) 20 % (42-75)
[2017-09-20 05:44] LABS: <PLATELET ESTIMATE> ADEQUATE; <PLT MORPHOLOGY> NORMAL PLT MORPH
[2017-09-20 07:16] VITALS: BP 122/70
[2017-09-20] MEDS: SODIUM CHLORIDE FLUSH 10ML SYR IVF SCH ×2 (08:53→20:17)
[2017-09-20] MEDS: FERROUS SULFATE 325 MG TABLET PO SCH ×3 (08:54→17:08)
[2017-09-20] MEDS: THIAMINE 100MG TABLET PO SCH (08:54)
[2017-09-20] MEDS: CARVEDILOL 6.25 MG TABLET PO SCH ×2 (08:54→20:18)
[2017-09-20] MEDS: AMOXICILLIN/CLAV 875-125MG TABLET PO SCH ×2 (08:54→20:18)
[2017-09-20] MEDS: MULTIVITAMIN 1 TABLET PO SCH (08:54)
[2017-09-20] MEDS: SENNA/DOCUSATE TABLET PO SCH (08:55)
[2017-09-20] MEDS: NICOTINE 14MG/24 HR PATCH.TD24 TD SCH (08:55)
[2017-09-20] MEDS: FOLIC ACID 1 MG TABLET PO SCH (08:55)
[2017-09-20] MEDS: SACUBITRIL/VALSARTAN 24MG-26MG TAB PO SCH (08:59)
[2017-09-20 13:52] VITALS: BP 96/56
[2017-09-20 19:10] VITALS: BP 116/71
[2017-09-21 01:49] VITALS: BP 122/74
[2017-09-21 04:42] LABS: MEAN CORPUSCULAR HEMOGLOBIN 31.3 pg (27.5-34.5); MEAN CORPUSCULAR HGB CONC 32.9 g/dL (33.2-36.2); MEAN CORPUSCULAR VOLUME 95.1 fL (81-97); MEAN PLATELET VOLUME 8.3 fL (7.4-10.4); PLATELET COUNT 162 x10^3/uL (130-400); RED BLOOD COUNT 2.97 x10^6/uL (4.38-5.82); RED CELL DISTRIBUTION WIDTH 19.4 % (9.4-14.8)
[2017-09-21] MEDS: LACTATED RINGERS 1,000 ML IV SCH ×2 (04:42→18:43)
[2017-09-21 05:00] LABS: ALBUMIN 2.5 g/dL (3.4-5.0); ANION GAP 5 mmol/L (5-15); CALCIUM 8.5 mg/dL (8.5-10.1); CHLORIDE 111 mmol/L (98-107)
[2017-09-21 05:04] LABS: ALANINE AMINOTRANSFERASE 32 U/L (12-78); ALKALINE PHOSPHATASE 82 U/L (45-117); BILIRUBIN,TOTAL 0.5 mg/dL (0.2-1.0); CREATININE 1.48 mg/dL (0.7-1.3); TOTAL PROTEIN 7.5 g/dL (6.4-8.2)
[2017-09-21 05:46] LABS: BASOPHILS # (AUTO) 0.01 x10^3/uL (0-0.1); BASOPHILS % (AUTO) 0 % (0-1); EOSINOPHILS # (AUTO) 0.02 x10^3/uL (0-0.4); EOSINOPHILS % (AUTO) 1 % (1-7); LYMPHOCYTES # (AUTO) 1.37 x10^3/uL (1-3.4); LYMPHOCYTES % (AUTO) 61 % (22-44); MD SCAN; MONOCYTES % (AUTO) 18 % (2-9); NEUTROPHILS # (AUTO) 0.45 x10^3/uL (1.8-6.8); NEUTROPHILS % (AUTO) 20 % (42-75)
[2017-09-21] MEDS: FERROUS SULFATE 325 MG TABLET PO SCH ×3 (07:49→16:37)
[2017-09-21] MEDS: AMOXICILLIN/CLAV 875-125MG TABLET PO SCH ×2 (07:49→21:53)
[2017-09-21] MEDS: NICOTINE 14MG/24 HR PATCH.TD24 TD SCH (07:49)
[2017-09-21] MEDS: SODIUM CHLORIDE FLUSH 10ML SYR IVF SCH ×2 (07:49→21:54)
[2017-09-21] MEDS: MULTIVITAMIN 1 TABLET PO SCH (07:50)
[2017-09-21] MEDS: FOLIC ACID 1 MG TABLET PO SCH (07:50)
[2017-09-21] MEDS: THIAMINE 100MG TABLET PO SCH (07:50)
[2017-09-21] MEDS: CARVEDILOL 6.25 MG TABLET PO SCH ×2 (07:50→21:54)
[2017-09-21] MEDS: SENNA/DOCUSATE TABLET PO SCH (07:50)
[2017-09-21 08:19] VITALS: BP 123/77
[2017-09-21 13:48] VITALS: BP 114/68
[2017-09-21 19:10] VITALS: BP 109/64
[2017-09-22 02:00] VITALS: BP 121/76
[2017-09-22 05:15] LABS: ALBUMIN 2.5 g/dL (3.4-5.0); ANION GAP 6 mmol/L (5-15); CALCIUM 8.7 mg/dL (8.5-10.1); CHLORIDE 109 mmol/L (98-107)
[2017-09-22 05:20] LABS: ALANINE AMINOTRANSFERASE 31 U/L (12-78); ALKALINE PHOSPHATASE 90 U/L (45-117); BILIRUBIN,TOTAL 0.5 mg/dL (0.2-1.0); CREATININE 1.63 mg/dL (0.7-1.3); TOTAL PROTEIN 7.6 g/dL (6.4-8.2)
[2017-09-22 07:41] VITALS: BP 135/78
[2017-09-22] MEDS: SODIUM CHLORIDE FLUSH 10ML SYR IVF SCH ×2 (08:02→21:24)
[2017-09-22] MEDS: THIAMINE 100MG TABLET PO SCH (08:08)
[2017-09-22] MEDS: FOLIC ACID 1 MG TABLET PO SCH (08:08)
[2017-09-22] MEDS: FERROUS SULFATE 325 MG TABLET PO SCH ×3 (08:08→17:05)
[2017-09-22] MEDS: SENNA/DOCUSATE TABLET PO SCH (08:08)
[2017-09-22] MEDS: NICOTINE 14MG/24 HR PATCH.TD24 TD SCH (08:08)
[2017-09-22] MEDS: AMOXICILLIN/CLAV 875-125MG TABLET PO SCH ×2 (08:08→21:24)
[2017-09-22] MEDS: MULTIVITAMIN 1 TABLET PO SCH (08:08)
[2017-09-22] MEDS: CARVEDILOL 6.25 MG TABLET PO SCH (08:08)
[2017-09-22] MEDS: LACTATED RINGERS 1,000 ML IV SCH (08:14)
[2017-09-22 16:23] VITALS: BP 130/80
[2017-09-22] MEDS: CARVEDILOL 3.125 MG TABLET PO SCH (17:05)
[2017-09-22 19:08] VITALS: BP 107/70
[2017-09-23 02:26] VITALS: BP 116/72
[2017-09-23] MEDS: CARVEDILOL 3.125 MG TABLET PO SCH ×2 (06:12→18:37)
[2017-09-23 07:02] LABS: ALANINE AMINOTRANSFERASE 31 U/L (12-78); ALBUMIN 2.8 g/dL (3.4-5.0); ANION GAP 6 mmol/L (5-15); CALCIUM 8.4 mg/dL (8.5-10.1); CHLORIDE 109 mmol/L (98-107); CREATININE 1.89 mg/dL (0.7-1.3)
[2017-09-23 07:05] LABS: ALKALINE PHOSPHATASE 98 U/L (45-117); BILIRUBIN,TOTAL 0.5 mg/dL (0.2-1.0)
[2017-09-23 07:36] VITALS: BP 127/76
[2017-09-23] MEDS: AMOXICILLIN/CLAV 875-125MG TABLET PO SCH ×2 (09:27→20:19)
[2017-09-23] MEDS: SENNA/DOCUSATE TABLET PO SCH (09:27)
[2017-09-23] MEDS: MULTIVITAMIN 1 TABLET PO SCH (09:28)
[2017-09-23] MEDS: SODIUM CHLORIDE FLUSH 10ML SYR IVF SCH ×2 (09:28→20:19)
[2017-09-23] MEDS: FERROUS SULFATE 325 MG TABLET PO SCH ×3 (09:28→18:37)
[2017-09-23] MEDS: FOLIC ACID 1 MG TABLET PO SCH (09:28)
[2017-09-23] MEDS: NICOTINE 14MG/24 HR PATCH.TD24 TD SCH (09:28)
[2017-09-23] MEDS: THIAMINE 100MG TABLET PO SCH (09:28)
[2017-09-23 14:33] VITALS: BP 112/68
[2017-09-23 18:43] VITALS: BP 91/61
[2017-09-24 01:30] VITALS: BP 126/74
[2017-09-24 05:26] LABS: MEAN CORPUSCULAR HEMOGLOBIN 30.7 pg (27.5-34.5); MEAN CORPUSCULAR HGB CONC 32.2 g/dL (33.2-36.2); MEAN CORPUSCULAR VOLUME 95.4 fL (81-97); PLATELET COUNT 173 x10^3/uL (130-400); RED BLOOD COUNT 3.32 x10^6/uL (4.38-5.82); RED CELL DISTRIBUTION WIDTH 19.2 % (9.4-14.8)
[2017-09-24 05:30] LABS: ANION GAP 9 mmol/L (5-15); CALCIUM 8.5 mg/dL (8.5-10.1); CHLORIDE 109 mmol/L (98-107)
[2017-09-24 05:32] LABS: CREATININE 1.74 mg/dL (0.7-1.3)
[2017-09-24] MEDS: CARVEDILOL 3.125 MG TABLET PO SCH (05:37)
[2017-09-24 06:05] LABS: BASOPHILS # (AUTO) 0.01 x10^3/uL (0-0.1); BASOPHILS % (AUTO) 0 % (0-1); EOSINOPHILS # (AUTO) 0.02 x10^3/uL (0-0.4); EOSINOPHILS % (AUTO) 1 % (1-7); LYMPHOCYTES # (AUTO) 1.33 x10^3/uL (1-3.4); LYMPHOCYTES % (AUTO) 40 % (22-44); MD SCAN; MONOCYTES % (AUTO) 12 % (2-9); NEUTROPHILS # (AUTO) 1.54 x10^3/uL (1.8-6.8); NEUTROPHILS % (AUTO) 47 % (42-75)
[2017-09-24 07:45] VITALS: BP 117/78
[2017-09-24] MEDS: AMOXICILLIN/CLAV 875-125MG TABLET PO SCH (09:00)
[2017-09-24] MEDS: NICOTINE 14MG/24 HR PATCH.TD24 TD SCH (09:00)
[2017-09-24] MEDS: SODIUM CHLORIDE FLUSH 10ML SYR IVF SCH (09:25)
[2017-09-24] MEDS: SENNA/DOCUSATE TABLET PO SCH (09:26)
[2017-09-24] MEDS: THIAMINE 100MG TABLET PO SCH (09:26)
[2017-09-24] MEDS: MULTIVITAMIN 1 TABLET PO SCH (09:28)
[2017-09-24] MEDS: FOLIC ACID 1 MG TABLET PO SCH (09:28)
[2017-09-24] MEDS: FERROUS SULFATE 325 MG TABLET PO SCH ×2 (09:28→12:00)
[2017-09-24 09:40] VITALS: BP 102/63
[2017-09-24] MEDS ORDERED: FERR-51 PO (14:13)
[2017-09-24] MEDS ORDERED: MULT1TAB60 PO (14:13)
[2017-09-24] MEDS ORDERED: CARV3.1212 PO (14:13)
[2017-09-24] MEDS ORDERED: FOLI-17 PO (14:13)
[2017-09-24] MEDS ORDERED: THIA100T6 PO (14:13)
[2017-09-24] MEDS ORDERED: ACET325T14 PO (14:13)
== END 2017-09-24 17:22 | disposition home or self-care (01) | DRG 871 ==
LOC: ED 18:38 → EDIP 19:58 → 3NE 23:25
PROVIDERS: ADMIT Hospitalist; ATTEND Family Medicine
PROC: 0T9B70Z Drainage of Bladder with Drainage Device, Via Natural or Artificial Opening (ICD-10-PCS; 2017-09-11)
PROC: 07DR3ZX Extraction of Iliac Bone Marrow, Percutaneous Approach, Diagnostic (ICD-10-PCS; principal; 2017-09-17)
DX: A41.9 Sepsis, unspecified organism (principal); N17.0 Acute kidney failure with tubular necrosis; E43 Unspecified severe protein-calorie malnutrition; D61.818 Other pancytopenia; E87.5 Hyperkalemia; G62.9 Polyneuropathy, unspecified; I42.9 Cardiomyopathy, unspecified; F10.10 Alcohol abuse, uncomplicated; D50.9 Iron deficiency anemia, unspecified; Z68.1 Body mass index [BMI] 19.9 or less, adult; R62.7 Adult failure to thrive; D63.8 Anemia in other chronic diseases classified elsewhere; M06.9 Rheumatoid arthritis, unspecified; F17.210 Nicotine dependence, cigarettes, uncomplicated; I12.9 Hypertensive chronic kidney disease with stage 1 through stage 4 chronic kidney disease, or unspecified chronic kidney disease; Z96.649 Presence of unspecified artificial hip joint; S31.30XA Unspecified open wound of scrotum and testes, initial encounter; X58.XXXA Exposure to other specified factors, initial encounter; I25.10 Atherosclerotic heart disease of native coronary artery without angina pectoris; L98.499 Non-pressure chronic ulcer of skin of other sites with unspecified severity; M19.90 Unspecified osteoarthritis, unspecified site; M62.84 Sarcopenia; N18.9 Chronic kidney disease, unspecified; N28.1 Cyst of kidney, acquired; Z79.82 Long term (current) use of aspirin; Z82.49 Family history of ischemic heart disease and other diseases of the circulatory system; Z86.14 Personal history of Methicillin resistant Staphylococcus aureus infection; Z86.19 Personal history of other infectious and parasitic diseases; Y93.89 Activity, other specified; Y92.89 Other specified places as the place of occurrence of the external cause; Z79.899 Other long term (current) drug therapy
CPT/HCPCS: 36415; 38222; 76770; 77012; 80048; 80053; 80307; 80329; 81001; 82040; 82436; 82525; 82570; 82607; 82728; 82746; 83540; 83550; 83735; 84100; 84133; 84134; 84155; 84165; 84300; 84439; 84443; 84466; 85025; 85045; 85060; 85097; 85651; 86038; 86140; 86200; 86430; 86480; 87040; 87077; 87086; 87186; 87806; 88184; 88185; 88237; 88264; 88280; 88305; 88311; 88313; 88374; 99156; 99157; 99285; J2250; J3010; 92523-GN; G0475; G0480; J2310; J7030; J7120

== ENCOUNTER → 2017-10-01 | Outpatient (CLI) | payer MEDICARE ==
[~2017-10-01] MED LIST changes: +ACET325T14 PO; +CARV3.1212 PO; +FERR-51 PO; +FOLI-17 PO; +MULT1TAB60 PO; +THIA100T6 PO
== END | disposition home or self-care (01) ==
LOC: WOUND 15:00
PROVIDERS: ATTEND Nurse Practitioner Family
DX: S31.30XA Unspecified open wound of scrotum and testes, initial encounter (principal); R33.9 Retention of urine, unspecified; E46 Unspecified protein-calorie malnutrition; I25.10 Atherosclerotic heart disease of native coronary artery without angina pectoris; E11.22 Type 2 diabetes mellitus with diabetic chronic kidney disease; I12.9 Hypertensive chronic kidney disease with stage 1 through stage 4 chronic kidney disease, or unspecified chronic kidney disease; N18.3 Chronic kidney disease, stage 3 (moderate); M06.9 Rheumatoid arthritis, unspecified; E11.42 Type 2 diabetes mellitus with diabetic polyneuropathy; E11.52 Type 2 diabetes mellitus with diabetic peripheral angiopathy with gangrene; I96 Gangrene, not elsewhere classified; M19.90 Unspecified osteoarthritis, unspecified site; F10.10 Alcohol abuse, uncomplicated; F17.210 Nicotine dependence, cigarettes, uncomplicated; Z96.641 Presence of right artificial hip joint; Z85.828 Personal history of other malignant neoplasm of skin; X58.XXXA Exposure to other specified factors, initial encounter; Y92.89 Other specified places as the place of occurrence of the external cause; Y93.89 Activity, other specified; Y99.8 Other external cause status
CPT/HCPCS: G0463; WOU0463

== ENCOUNTER → 2017-10-05 | Outpatient (CLI) | payer MEDICARE | END | disposition home or self-care (01) | LOC: WOUND 13:15 | PROVIDERS: ATTEND Nurse Practitioner Family | DX: S31.30XD Unspecified open wound of scrotum and testes, subsequent encounter (principal); R33.9 Retention of urine, unspecified; E46 Unspecified protein-calorie malnutrition; I25.10 Atherosclerotic heart disease of native coronary artery without angina pectoris; E11.22 Type 2 diabetes mellitus with diabetic chronic kidney disease; I12.9 Hypertensive chronic kidney disease with stage 1 through stage 4 chronic kidney disease, or unspecified chronic kidney disease; N18.3 Chronic kidney disease, stage 3 (moderate); E11.42 Type 2 diabetes mellitus with diabetic polyneuropathy; E11.52 Type 2 diabetes mellitus with diabetic peripheral angiopathy with gangrene; I96 Gangrene, not elsewhere classified; M06.9 Rheumatoid arthritis, unspecified; F17.210 Nicotine dependence, cigarettes, uncomplicated; Z96.641 Presence of right artificial hip joint; Z79.82 Long term (current) use of aspirin; Z79.899 Other long term (current) drug therapy; Z85.828 Personal history of other malignant neoplasm of skin; X58.XXXD Exposure to other specified factors, subsequent encounter | CPT/HCPCS: 97597 ==

== ENCOUNTER → 2017-10-12 | Outpatient (CLI) | payer MEDICARE | END | disposition home or self-care (01) | LOC: WOUND 11:10 | PROVIDERS: ATTEND Internal Medicine Cardiovascular Disease | DX: S31.30XA Unspecified open wound of scrotum and testes, initial encounter (principal); I10 Essential (primary) hypertension; R33.9 Retention of urine, unspecified; I25.10 Atherosclerotic heart disease of native coronary artery without angina pectoris; E11.52 Type 2 diabetes mellitus with diabetic peripheral angiopathy with gangrene; I96 Gangrene, not elsewhere classified; M06.9 Rheumatoid arthritis, unspecified; M19.90 Unspecified osteoarthritis, unspecified site; E11.22 Type 2 diabetes mellitus with diabetic chronic kidney disease; I12.9 Hypertensive chronic kidney disease with stage 1 through stage 4 chronic kidney disease, or unspecified chronic kidney disease; N18.3 Chronic kidney disease, stage 3 (moderate); E11.42 Type 2 diabetes mellitus with diabetic polyneuropathy; F17.210 Nicotine dependence, cigarettes, uncomplicated; F10.10 Alcohol abuse, uncomplicated; Z85.828 Personal history of other malignant neoplasm of skin; Z96.641 Presence of right artificial hip joint; X58.XXXA Exposure to other specified factors, initial encounter; Y92.89 Other specified places as the place of occurrence of the external cause; Y93.89 Activity, other specified; Y99.8 Other external cause status | CPT/HCPCS: G0463; WOU0463 ==

== ENCOUNTER → 2017-10-15 | Outpatient (CLI) | payer MEDICARE | END | disposition home or self-care (01) | LOC: WOUND 13:01 | PROVIDERS: ATTEND Family Medicine | DX: S31.30XD Unspecified open wound of scrotum and testes, subsequent encounter (principal); R33.9 Retention of urine, unspecified; E46 Unspecified protein-calorie malnutrition; I25.10 Atherosclerotic heart disease of native coronary artery without angina pectoris; M06.9 Rheumatoid arthritis, unspecified; E11.42 Type 2 diabetes mellitus with diabetic polyneuropathy; E11.52 Type 2 diabetes mellitus with diabetic peripheral angiopathy with gangrene; I96 Gangrene, not elsewhere classified; E11.22 Type 2 diabetes mellitus with diabetic chronic kidney disease; I12.9 Hypertensive chronic kidney disease with stage 1 through stage 4 chronic kidney disease, or unspecified chronic kidney disease; N18.3 Chronic kidney disease, stage 3 (moderate); F10.10 Alcohol abuse, uncomplicated; F17.210 Nicotine dependence, cigarettes, uncomplicated; Z96.641 Presence of right artificial hip joint; Z85.828 Personal history of other malignant neoplasm of skin; X58.XXXD Exposure to other specified factors, subsequent encounter | CPT/HCPCS: G0463; WOU0463 ==